=== PATIENT | male | born 1985 | race Caucasian/White ===

== ENCOUNTER 2021-04-18 18:46 | Emergency (ER) | payer MEDICAID ==
[~2021-04-18] VITALS: Ht 180.3 cm; Wt 64.4 kg
[2021-04-18 18:54] VITALS: BP 129/82
[2021-04-18] MEDS ORDERED: KETOROLAC 30 MG/1 ML IM ONE (19:00)
[2021-04-18] MEDS ORDERED: CYCLOBENZAPRINE 10 MG TABLET PO ONE (19:00)
[2021-04-18] MEDS ORDERED: PLEASE ENTER ALLERGIES MC SCH (19:30)
[2021-04-18] MEDS ORDERED: CYCLOBENZAPRINE 10 MG TABLET ONE (21:08)
[2021-04-18] MEDS ORDERED: KETOROLAC 60 MG/2 ML ONE (21:08)
--- NOTE | 2021-04-18 21:19 | NUR ---
PT AMBULATED TO ROOM, AND PLACED IN GOWN IN [facility]. MD XANDER WHITLEY.
--- NOTE | 2021-04-18 21:20 | NUR ---
MEDS GIVEN TO PT AND HE V/U OF THEIR NEED.
--- NOTE | 2021-04-18 21:54 | NUR ---
F/U AND D/C INSTRUCTIONS GIVEN TO PT AND HE V/U. PT AMBULATORY AND EXITED ER WITHOUT ISSUE.
== END 2021-04-18 22:05 | disposition home or self-care (01) ==
LOC: ED 21:30
DX: S16.1XXA Strain of muscle, fascia and tendon at neck level, initial encounter (principal); M43.6 Torticollis; W18.30XA Fall on same level, unspecified, initial encounter; Y93.89 Activity, other specified; Y92.89 Other specified places as the place of occurrence of the external cause
CPT/HCPCS: 96372; 99283; J1885